=== PATIENT | male | born 1985 | race African-American/Black ===

== ENCOUNTER 2019-06-14 16:52 | Inpatient (IN) | payer MEDICAID, OTHER ==
[~2019-06-14] VITALS: Ht 167.6 cm; Wt 67.1 kg
[2019-06-14] MEDS ORDERED: ACETAMINOPHEN 650 mg PER 20 mL UD PO ONE (17:15)
[2019-06-14 17:18] LABS: Urine WBC None Seen /hpf (0 - 3)
[2019-06-14 17:37] LABS: Urine Bacteria NONE SEEN /hpf (None Seen); Urine Blood 2+ /uL (Negative); Urine Specific Gravity 1.025 (1.001-1.035)
[2019-06-14 18:02] LABS: Basophils # (auto) 0 uL; Basophils % (auto) 0.1 % (0.0-2.0); Eosinophils # (auto) 0 uL; Eosinophils % (auto) 0.3 % (0.0-7.0); Hemoglobin 15.6 g/dL (13.5-17.5); Lymphocytes % (auto) 10.7 % (10.0-50.0); Mean Corpuscular Hemoglobin 29.5 pg (28.0-32.0); Mean Corpuscular Volume 86.8 fL (80.0-100.0); Monocytes # (auto) 2.9 uL; Monocytes % (auto) 15.5 % (0.0-12.0); Neutrophils # (auto) 13.5 uL; Neutrophils % (auto) 73.4 % (37.0-80.0); Platelet Count (auto) 222 10^3/uL (140-450); Red Cell Distribution Width 14.6 % (11.8-14.3); White Blood Cell 18.4 10^3/uL (4.4-10.8)
[2019-06-14] MEDS ORDERED: AZITHROMYCIN 500MG/ 250ML 250 ML IV ONE (18:15)
[2019-06-14] MEDS ORDERED: SODIUM CHLORIDE 0.9% 1,000 ML IV ONE ×2 (18:15→20:15)
[2019-06-14] MEDS ORDERED: cefTRIAXone 1GM/50ML D5W 50 ML IV ONE (18:15)
[2019-06-14 18:26] LABS: BUN/Creatinine Ratio 8.1; Calcium 9.2 mg/dL (8.5-10.1); Potassium 3.2 mmol/L (3.5-5.1)
[2019-06-14 18:30] LABS: Total Protein 8.4 g/dL (6.4-8.2)
[2019-06-14 18:37] LABS: Albumin 2.7 g/dL (3.4-5.0)
[2019-06-14] MEDS ORDERED: IPRATROPIUM BROM 0.5 MG/2.5ML INH SOL NEB ONE (18:45)
[2019-06-14] MEDS ORDERED: ALBUTEROL SULF 2.5 MG/0.5ML(0.5%) NEB SOLN NEB ONE (18:45)
[2019-06-14] MEDS ORDERED: ONDANSETRON HCL 4 MG/2 ML VIAL ONE (18:46)
[2019-06-14] MEDS ORDERED: ONDANSETRON HCL 4 MG/2 ML VIAL IV ONE (19:00)
[2019-06-14] MEDS ORDERED: IBUPROFEN 600 MG TAB PO ONE (19:30)
[2019-06-14] MEDS ORDERED: ONDANSETRON HCL 4 MG/2 ML VIAL IV PRN (21:00)
[2019-06-14] MEDS ORDERED: ACETAMINOPHEN 325 MG TAB PO PRN (21:00)
[2019-06-14] MEDS ORDERED: MORPHINE SULFATE 4 MG/ML SYR/VIAL IV PRN (21:00)
[2019-06-14] MEDS ORDERED: LORazepam 0.5 MG TAB PO PRN (21:00)
[2019-06-14] MEDS ORDERED: DOCUSATE SOD 100 MG CAP PO PRN (21:00)
[2019-06-14] MEDS: SODIUM CHLORIDE 0.9% 1,000 ML IV SCH (22:05)
[2019-06-14 23:00] VITALS: BP 115/71
--- NOTE | 2019-06-14 23:00 | NUR ---
MS admit from ER [facility] admitted to tele/MS after SBAR received. Patient oriented to Veronique Andersen RN primary RN, unit, room, bed, and unit policies regarding patient care and visiting hours. Patient weighed by bedscale and encouraged to call if they need something. Instructed on POC, all questions and concerns addressed, patient verbalized understanding, will continue to monitor Note:
[2019-06-14 23:07] VITALS: BP 115/71
[2019-06-15] VITALS (8 sets, daily range): BP systolic 114–123; BP diastolic 68–73
[2019-06-15 08:30] LABS: Hematocrit 38.7 % (41.0-53.0); Hemoglobin 13.4 g/dL (13.5-17.5); Mean Corpuscular Hemoglobin 29.4 pg (28.0-32.0); Mean Corpuscular Hgb Conc. 34.8 g/dL (32.0-36.0); Mean Corpuscular Volume 84.6 fL (80.0-100.0); Platelet Count (auto) 206 10^3/uL (140-450); Red Blood Cells 4.57 10^6/uL (4.5-5.90); Red Cell Distribution Width 14.8 % (11.8-14.3); White Blood Cell 27.8 10^3/uL (4.4-10.8)
[2019-06-15 08:46] LABS: Basophils % (manual) 0 (0.0-2.0); Blast Cells 0; Metamyelocytes % 0; Myelocytes % 0; Promyelocytes % 0; Reactive Lymphocytes 0
[2019-06-15 08:53] LABS: Band Neutrophils % (manual) 7; Eosinophils % (manual) 2 (0-7); Lymphocytes % (manual) 7 (10.0-50.0); Monocytes % (manual) 16 (0-12)
[2019-06-15] MEDS: cefTRIAXone 1GM/50ML D5W 50 ML IV SCH (09:20)
[2019-06-15] MEDS: SODIUM CHLORIDE 0.9% 1,000 ML IV SCH ×2 (09:26→15:49)
[2019-06-15] MEDS: AZITHROMYCIN 500MG/ 250ML 250 ML IV SCH (09:59)
--- NOTE | 2019-06-15 19:45 | NUR ---
Opening Shift Note Assumed care of patient, awake and alert. No S/S of distress/SOB or pain. Instructed on POC and to call for assist PRN, patient verbalized understanding, call light within reach, will continue to monitor for changes Q1hr and PRN.
[2019-06-15] MEDS: HYDROcodone-ACET 5/325MG TAB PO PRN (19:58)
[2019-06-15] MEDS ORDERED: ALBUTEROL SULF 2.5 MG/0.5ML(0.5%) NEB SOLN NEB PRN (20:00)
[2019-06-15] MEDS ORDERED: ALBUTEROL SULF 2.5 MG/0.5ML(0.5%) NEB SOLN ONE (20:09)
[2019-06-15] MEDS: IPRATROPIUM BROM 0.5 MG/2.5ML INH SOL NEB SCH (22:15)
[2019-06-15] MEDS: ALBUTEROL SULF 2.5 MG/0.5ML(0.5%) NEB SOLN NEB SCH (22:15)
--- NOTE | 2019-06-15 22:30 | NUR ---
Nasal swab done for Influenza and sputum specimen collected for culture and sent to lab
[2019-06-16] MEDS: SODIUM CHLORIDE 0.9% 1,000 ML IV SCH ×2 (00:45→10:29)
[2019-06-16 04:59] VITALS: BP 121/77
[2019-06-16] MEDS: ALBUTEROL SULF 2.5 MG/0.5ML(0.5%) NEB SOLN NEB SCH ×5 (06:21→22:54)
[2019-06-16] MEDS: IPRATROPIUM BROM 0.5 MG/2.5ML INH SOL NEB SCH ×5 (06:21→22:54)
[2019-06-16 06:28] LABS: Hematocrit 40.6 % (41.0-53.0); Hemoglobin 13.9 g/dL (13.5-17.5); Mean Corpuscular Hemoglobin 29.6 pg (28.0-32.0); Mean Corpuscular Hgb Conc. 34.2 g/dL (32.0-36.0); Mean Corpuscular Volume 86.6 fL (80.0-100.0); Platelet Count (auto) 226 10^3/uL (140-450); Red Blood Cells 4.69 10^6/uL (4.5-5.90); Red Cell Distribution Width 14.7 % (11.8-14.3); White Blood Cell 14.3 10^3/uL (4.4-10.8)
[2019-06-16 06:49] LABS: BUN/Creatinine Ratio 7.4; Magnesium 2.1 mg/dL (1.6-2.6); Potassium 3.2 mmol/L (3.5-5.1)
[2019-06-16 07:26] LABS: Basophils % (manual) 0 (0.0-2.0); Blast Cells 0; Myelocytes % 0; Promyelocytes % 0; Reactive Lymphocytes 0
[2019-06-16 08:19] VITALS: BP 123/72
[2019-06-16 09:00] VITALS: BP 123/72
[2019-06-16 09:01] LABS: Band Neutrophils % (manual) 3; Eosinophils % (manual) 5 (0-7); Lymphocytes % (manual) 19 (10.0-50.0); Metamyelocytes % 1; Monocytes % (manual) 11 (0-12)
[2019-06-16] MEDS: cefTRIAXone 1GM/50ML D5W 50 ML IV SCH (09:21)
[2019-06-16] MEDS ORDERED: guaiFENesin-DM 100/10mg/5ml SYR PO PRN (10:15)
[2019-06-16] MEDS ORDERED: POTASSIUM CHL 20 Meq TABLET PO ONE (10:15)
[2019-06-16] MEDS: AZITHROMYCIN 500MG/ 250ML 250 ML IV SCH (10:28)
[2019-06-16 13:00] VITALS: BP 127/85
[2019-06-16 17:00] VITALS: BP 120/83
--- NOTE | 2019-06-16 19:46 | NUR ---
Opening Shift Note Assumed care of patient, awake and alert. No S/S of distress/SOB or pain. Instructed on POC and to call for assist PRN, will continue to monitor for changes Q1hr and PRN. bed in low postion and call light within reach.
[2019-06-16 22:00] VITALS: BP 130/82
[2019-06-17] MEDS: SODIUM CHLORIDE 0.9% 1,000 ML IV SCH ×2 (00:33→17:23)
[2019-06-17] MEDS: HYDROcodone-ACET 5/325MG TAB PO PRN ×2 (04:07→19:08)
[2019-06-17 05:00] VITALS: BP 120/75
[2019-06-17] MEDS: ALBUTEROL SULF 2.5 MG/0.5ML(0.5%) NEB SOLN NEB SCH ×5 (06:29→22:02)
[2019-06-17] MEDS: IPRATROPIUM BROM 0.5 MG/2.5ML INH SOL NEB SCH ×5 (06:29→22:02)
[2019-06-17 06:50] LABS: Hematocrit 39.9 % (41.0-53.0); Hemoglobin 13.6 g/dL (13.5-17.5); Mean Corpuscular Hemoglobin 29.5 pg (28.0-32.0); Mean Corpuscular Volume 86.7 fL (80.0-100.0); Platelet Count (auto) 280 10^3/uL (140-450); Red Cell Distribution Width 14.6 % (11.8-14.3); White Blood Cell 10.9 10^3/uL (4.4-10.8)
--- NOTE | 2019-06-17 07:00 | NUR ---
REPORT GIVEN TO DAYSHIFT RN. PATIENT DENIES SOB/PAIN. BED IN LOW POSITION AND CALL LIGHT WITHIN REACH.
[2019-06-17 07:07] LABS: BUN/Creatinine Ratio 1.2; Calcium 8.3 mg/dL (8.5-10.1); Potassium 3.2 mmol/L (3.5-5.1)
[2019-06-17 07:24] LABS: Basophils % (manual) 0 (0.0-2.0); Blast Cells 0; Promyelocytes % 0; Reactive Lymphocytes 0
[2019-06-17 08:00] VITALS: BP 123/74
[2019-06-17 08:09] LABS: Band Neutrophils % (manual) 1; Eosinophils % (manual) 4 (0-7); Lymphocytes % (manual) 30 (10.0-50.0); Metamyelocytes % 1; Monocytes % (manual) 7 (0-12); Myelocytes % 1
[2019-06-17 08:57] VITALS: BP_SYST 123; BP_SYST 151; BP_DIAS 71; BP_DIAS 74
[2019-06-17] MEDS: cefTRIAXone 1GM/50ML D5W 50 ML IV SCH (09:02)
[2019-06-17] MEDS ORDERED: POTASSIUM CHL 20 Meq TABLET PO ONE (10:15)
[2019-06-17] MEDS: AZITHROMYCIN 500MG/ 250ML 250 ML IV SCH (11:06)
[2019-06-17 13:01] VITALS: BP 139/81
[2019-06-17 17:00] VITALS: BP_SYST 118; BP_SYST 127; BP_DIAS 76; BP_DIAS 83
--- NOTE | 2019-06-17 19:40 | NUR ---
Opening Shift Note Assumed care of patient, awake and alert. No S/S of distress/SOB or pain. Instructed on POC and to call for assist PRN, will continue to monitor for changes Q1hr and PRN. bed in low position and call light within reach.
[2019-06-17 22:00] VITALS: BP 120/83
--- NOTE | 2019-06-18 03:45 | NUR ---
iv patient refused placement of new iv per hospital policy. educated patient on risk and benefits of iv. patient refused. resource rn attempted to start iv patient continued to refused.
[2019-06-18] MEDS: HYDROcodone-ACET 5/325MG TAB PO PRN (04:11)
[2019-06-18] MEDS: SODIUM CHLORIDE 0.9% 1,000 ML IV SCH (05:02)
[2019-06-18 06:20] VITALS: BP 118/78
[2019-06-18 06:42] LABS: Basophils # (auto) 0.1 uL; Basophils % (auto) 0.6 % (0.0-2.0); Eosinophils # (auto) 0.3 uL; Eosinophils % (auto) 2.7 % (0.0-7.0); Hematocrit 40.2 % (41.0-53.0); Hemoglobin 13.9 g/dL (13.5-17.5); Lymphocytes # (auto) 2.3 uL; Lymphocytes % (auto) 23.1 % (10.0-50.0); Mean Corpuscular Hemoglobin 30.1 pg (28.0-32.0); Mean Corpuscular Hgb Conc. 34.6 g/dL (32.0-36.0); Mean Corpuscular Volume 86.8 fL (80.0-100.0); Monocytes # (auto) 0.8 uL; Monocytes % (auto) 7.8 % (0.0-12.0); Neutrophils # (auto) 6.7 uL; Neutrophils % (auto) 65.8 % (37.0-80.0); Nucleated Red Blood Cells % 0.1 %; Platelet Count (auto) 348 10^3/uL (140-450); Red Blood Cells 4.63 10^6/uL (4.5-5.90); Red Cell Distribution Width 14.9 % (11.8-14.3); White Blood Cell 10.2 10^3/uL (4.4-10.8)
[2019-06-18] MEDS: ALBUTEROL SULF 2.5 MG/0.5ML(0.5%) NEB SOLN NEB SCH ×2 (06:45→10:29)
[2019-06-18] MEDS: IPRATROPIUM BROM 0.5 MG/2.5ML INH SOL NEB SCH ×2 (06:45→10:29)
--- NOTE | 2019-06-18 07:25 | NUR ---
Report given to vinayak rn. informed rn of previous k and pending labs. patient shows no signs of distress or sob. informed rn patient refused new iv placement.
--- NOTE | 2019-06-18 07:55 | NUR ---
Opening Shift Note Assumed care of patient, awake and alert. No S/S of distress/SOB or pain. Instructed on POC and to call for assist PRN, call light within reach and bed in locked and lowest position. Will continue to monitor for changes Q1hr and PRN.
[2019-06-18 08:00] VITALS: BP 133/66
[2019-06-18 08:30] VITALS: BP 133/86
--- NOTE | 2019-06-18 09:40 | NUR ---
Dr. Taylor bedside with patient discussing plan of care.
[2019-06-18] MEDS ORDERED: POTASSIUM CHL 20 Meq TABLET PO ONE (10:15)
[2019-06-18] MEDS ORDERED: LEVO750T2 PO (10:15)
[2019-06-18] MEDS: cefTRIAXone 1GM/50ML D5W 50 ML IV SCH (10:41)
[2019-06-18] MEDS: AZITHROMYCIN 500MG/ 250ML 250 ML IV SCH (12:12)
[2019-06-18 12:18] VITALS: BP 133/86
--- NOTE | 2019-06-18 13:20 | NUR ---
Discharge instructions given as ordered. Encouraged to call [employer], Kamryn, and provided phone number to call for PCP. Also instructed to f/u with the PCP for appointment within week and chest xray as ordered by MD. All questions and concerns addressed. Patient verbalized understanding. Medication reconciliation form completed and copy given to patient. Patient refused vaccines. IV removed with catheter intact and pressure dressing applied.
--- NOTE | 2019-06-18 13:28 | NUR ---
Patient taken to vehicle via wheelchair with all personal belongings, accompanied by staff and family members. No distress noted at time of departure.
== END 2019-06-18 13:28 | disposition home or self-care (01) | DRG 720 ==
LOC: ER 16:52 → OVERFLOW 16:53 → WEST WING 22:34
PROVIDERS: ADMIT Hospitalist; ATTEND Internal Medicine
DX: A41.9 Sepsis, unspecified organism (principal); N17.0 Acute kidney failure with tubular necrosis; R19.7 Diarrhea, unspecified; J18.9 Pneumonia, unspecified organism; R16.2 Hepatomegaly with splenomegaly, not elsewhere classified; E87.6 Hypokalemia; Z87.01 Personal history of pneumonia (recurrent); Z79.899 Other long term (current) drug therapy
CPT/HCPCS: 36415; 71046; 71250; 80048; 80053; 81001; 83605; 83735; 84132; 85007; 85025; 85027; 87040; 87070; 87205; 87804; 94640; G0378; J0696; J2405